=== PATIENT | female | born 1955 | race American Indian/Alaskan Native ===

== ENCOUNTER 2016-02-26 11:00 | Outpatient (CLI) | payer MEDICARE | END 2016-02-26 11:01 | disposition home or self-care (01) | LOC: SLR 11:00 | PROVIDERS: ATTEND Family Medicine | DX: I10 Essential (primary) hypertension (principal); G47.33 Obstructive sleep apnea (adult) (pediatric); J43.9 Emphysema, unspecified; R06.83 Snoring | CPT/HCPCS: 95810 ==